=== PATIENT | male | born 1975 | race Two or more races ===

== ENCOUNTER 2017-02-21 16:22 | Emergency (ER) | payer OTHER ==
[~2017-02-21] VITALS: Ht 182.9 cm; Wt 88.9 kg
--- NOTE | 2017-02-21 16:24 | NUR ---
PT BIBRA TO ER BED 12. HERE FOR ETOH AND POSSIBLE OD TO SEROQUEL. PT DENIES SI/HI. GOWNWED AND PLOACED ON MONITOR TYCHY OTHERWISE STABLE VITALS. AWAITING MD LARA.
[2017-02-21] MEDS ORDERED: ONDANSETRON HCL/PF 4 MG/2 ML VIAL ONE (16:46)
[2017-02-21] MEDS ORDERED: ACTIVATED CHARCOAL 25 GM/120 ML TUBE ONE (16:52)
[2017-02-21 16:55] LABS: BASOPHILS # (AUTO) 0.2 /CMM (0.0-0.2); BASOPHILS % (AUTO) 2.3 % (0.0-2.0); EOSINOPHILS % (AUTO) 0.3 % (0.0-6.0); HEMATOCRIT 41 % (39-51); HEMOGLOBIN 13.8 g/dL (13.5-17.5); LYMPHOCYTES # (AUTO) 2.1 /CMM (0.8-4.8); MEAN CORPUSCULAR HEMOGLOBIN 32 PG (26.0-33.0); MEAN CORPUSCULAR HGB CONC 34 g/dl (31.0-36.0); MEAN CORPUSCULAR VOLUME 95 fL (80-96); MONOCYTES # (AUTO) 0.5 /CMM (0.1-1.30); MONOCYTES % (AUTO) 6.3 % (2.0-12.0); NEUTROPHILS # (AUTO) 5.4 /CMM (1.8-8.9); NEUTROPHILS % (AUTO) 66.1 % (43.0-81.0); PLATELET COUNT (AUTO) 180 /CMM (150-450); RDW COEFFICIENT OF VARIATION 13.5 (11.5-15.0); RED BLOOD CELL COUNT(AUTO) 4.32 MIL/uL (4.5-6.0); WHITE BLOOD COUNT (AUTO) 8.2 K/uL (4.3-11.0)
[2017-02-21] MEDS ORDERED: ACTIVATED CHARCOAL 25 GM/120 ML TUBE PO ONE (17:00)
[2017-02-21] MEDS ORDERED: IV NS 0.9% 1,000 ML BAG IV ONE (17:00)
[2017-02-21] MEDS ORDERED: ONDANSETRON HCL/PF 4 MG/2 ML VIAL IVP ONE (17:00)
[2017-02-21 17:04] LABS: CALCIUM, SERUM 8.3 mg/dL (8.5-10.1); CREATININE 1.2 mg/dL (0.6-1.3); POTASSIUM 3.9 mmol/L (3.5-5.1)
[2017-02-21 17:10] LABS: ALBUMIN 3.4 g/dL (3.4-5.0); BILIRUBIN,DIRECT 0.2 mg/dL (0.0-0.2); BILIRUBIN,TOTAL 1.1 mg/dL (0.2-1.0)
--- NOTE | 2017-02-21 17:50 | NUR ---
LINDA EVANS FOR PSYCH EVAL ETA 1HR
--- NOTE | 2017-02-21 18:04 | NUR ---
PT STATES FEELING MUCH BETTER. DENIES SI/HI STATES HE MISTAKENLY TOOK THE HIGHER DOSE MEDICATION AND NO PLANS TO HURT HIMSELF. GIRLFRIEND STATES SHE IS FINE TAKING PT HOME. AWAITING ERMD RE EVAL.
--- NOTE | 2017-02-21 18:20 | NUR ---
PT INSISTING TO GO HOME, STATES FEELING MUCH BETTER. ABLE TO AMBULATE W/ STEADY GAIT. DR MARLEY AT BEDSIDE FOR RE EVAL. DR MARLEY IS CONCERN ABOUT GIRLFRIEND NOW TOO LETHARGIC, DR MARLEY OFFERED A TAXI VOUCHER SO PT CAN GO HOME SAFELY. PT AND GIRLFRIEND AGREED. PT SENT TO WAITING AREA. PT VERBALLY DISCHARGE IN STABLE CONDITION.
[2017-02-21 18:29] VITALS: BP 118/76
== END 2017-02-21 18:30 | disposition home or self-care (01) ==
LOC: EDBD 16:24 → ER 16:24
DX: T43.591A Poisoning by other antipsychotics and neuroleptics, accidental (unintentional), initial encounter (principal); F25.9 Schizoaffective disorder, unspecified; F10.10 Alcohol abuse, uncomplicated; F15.10 Other stimulant abuse, uncomplicated; Y92.89 Other specified places as the place of occurrence of the external cause
CPT/HCPCS: 36415; 80048; 80076; 80329; 85025; 93005; 96374; 99285; A4606; G0480 ×2; J2405; J7030; Z7610

== ENCOUNTER 2023-12-13 12:30 | Emergency (ER) | payer OTHER ==
[~2023-12-13] VITALS: Ht 185.4 cm; Wt 84.8 kg
[2023-12-13 12:37] VITALS: TEMP 97.9
[2023-12-13 13:10] LABS: BASOPHILS % (AUTO) 0.5 % (0.0-2.0); EOSINOPHILS % (AUTO) 0.2 % (0.0-6.0); HEMATOCRIT 42 % (39-51); HEMOGLOBIN 14.4 g/dL (13.5-17.5); LYMPHOCYTES # (AUTO) 1.2 K/uL (0.8-4.8); LYMPHOCYTES % (AUTO) 26.8 % (20.0-44.0); MEAN CORPUSCULAR HEMOGLOBIN 34 PG (26.0-33.0); MEAN CORPUSCULAR HGB CONC 34 g/dl (31.0-36.0); MEAN CORPUSCULAR VOLUME 99 fL (80-96); MONOCYTES # (AUTO) 0.3 K/uL (0.1-1.30); MONOCYTES % (AUTO) 7.7 % (2.0-12.0); NEUTROPHILS # (AUTO) 2.9 K/uL (1.8-8.9); NEUTROPHILS % (AUTO) 64.8 % (43.0-81.0); PLATELET COUNT (AUTO) 156 K/uL (150-450); RED BLOOD CELL COUNT(AUTO) 4.25 MIL/uL (4.5-6.0); RED CELL DISTRIBUTION WIDTH 14.5 % (11.5-15.0); WHITE BLOOD COUNT (AUTO) 4.5 K/uL (4.3-11.0)
[2023-12-13 13:13] LABS: CALCIUM, SERUM 9.1 mg/dL (8.5-10.1); CARBON DIOXIDE 29 mmol/L (21-32); CHLORIDE 104 mmol/L (98-107); CREATININE 1.2 mg/dL (0.6-1.3); GLUCOSE 92 mg/dL (74-106); POTASSIUM 3.6 mmol/L (3.5-5.1); SODIUM SERUM 140 mmol/L (136-145); UREA NITROGEN, BLOOD 13 mg/dL (7-18)
[2023-12-13 13:18] LABS: ALANINE AMINOTRANSFERASE 14 U/L (12-78); ALBUMIN 3.6 g/dL (3.4-5.0); ALKALINE PHOSPHATASE 74 U/L (46-116); ASPARTATE AMINOTRANSFERASE 12 U/L (15-37); BILIRUBIN,DIRECT 0.2 mg/dL (0.0-0.2); BILIRUBIN,TOTAL 1.2 mg/dL (0.2-1.0); TOTAL PROTEIN, SERUM 7.3 g/dL (6.4-8.2)
[2023-12-13 13:20] LABS: ACETAMINOPHEN <10 ug/ml (10-30); ALCOHOL, BLOOD < 3 mg/dL (0-10); SALICYLATE 2.3 mg/dL (2.8-20.0)
[2023-12-13 13:51] LABS: APPEARANCE,URINE CLEAR (CLEAR); BILIRUBIN,URINE NEGATIVE (NEGATIVE); BLOOD, URINE NEGATIVE Ery/uL (NEGATIVE); COLOR,URINE YELLOW (YELLOW); KETONES,URINE NEGATIVE (NEGATIVE); LEUKOCYTE ESTERASE ,URINE NEGATIVE (NEGATIVE); NITRITE, URINE NEGATIVE (NEGATIVE); PROTEIN,URINE NEGATIVE (NEGATIVE); UGLUCOSE NEGATIVE (NEGATIVE)
[2023-12-13 13:52] LABS: AMPHETAMINE, URINE NEGATIVE (NEGATIVE); BARBITURATE, URINE NEGATIVE (NEGATIVE); BENZODIAZEPINE, URINE NEGATIVE (NEGATIVE); CANNABINOID, URINE NEGATIVE (NEGATIVE); COCCAINE, URINE POSITIVE (NEGATIVE); OPIATE, URINE NEGATIVE (NEGATIVE); PHENCYCLIDINE SCREEN,URINE NEGATIVE (NEGATIVE)
[2023-12-13 14:06] LABS: ADD URINE CULTURE NO; BACTERIA,URINE Rare /HPF (None Seen); RBC,URINE 0-2 /HPF (0-2); SQUAMOUS EPITHELIAL CELL,UR Rare /HPF (None Seen); WBC,URINE 0-2 /HPF (0-3)
[2023-12-13 16:00] VITALS: BP 128/85; O2SAT 98
== END 2023-12-13 16:00 ==
LOC: ER 12:38
DX: F23 Brief psychotic disorder (principal); F14.10 Cocaine abuse, uncomplicated; F25.9 Schizoaffective disorder, unspecified; F17.290 Nicotine dependence, other tobacco product, uncomplicated; F19.10 Other psychoactive substance abuse, uncomplicated; Z20.822 Contact with and (suspected) exposure to COVID-19; Z91.148 Patient's other noncompliance with medication regimen for other reason
CPT/HCPCS: 99285; 85025; 80048; 80076; 81001; 36415; 87426; 80143; 80320; 80307; A6403; G0480